=== PATIENT | female | born 1980 | race African-American/Black ===

== ENCOUNTER 2017-04-02 13:19 | Emergency (ER) | payer MEDICAID ==
[~2017-04-02] VITALS: Ht 157.5 cm; Wt 69.0 kg
[2017-04-02] MEDS ORDERED: KETOROLAC 60MG/2ML VIAL IM ONE (18:45)
[2017-04-02] MEDS ORDERED: VISCOUS LIDOCAINE 2% 15 ML UDC PO ONE (18:45)
[2017-04-02] MEDS ORDERED: LIDOCAINE HCL 1% 20ML VIAL (Pyxis) INJ MC ONE (18:45)
[2017-04-02 19:02] VITALS: BP 133/85
== END 2017-04-02 19:42 | disposition home or self-care (01) ==
LOC: ER 18:20
DX: K04.7 Periapical abscess without sinus (principal)
CPT/HCPCS: 41800; 81025; 96372; 99284; J1885; J3490; Z7610; 10060; 99283

== ENCOUNTER 2018-02-25 08:39 | Observation (INO) | payer MEDICAID ==
[~2018-02-25] VITALS: Ht 157.5 cm; Wt 70.3 kg
[2018-02-25] MEDS ORDERED: FOLI-43 PO (09:30)
[2018-02-25] MEDS ORDERED: FERR325T6 PO (09:35)
[2018-02-25] MEDS ORDERED: PNV1TABL50 PO (09:37)
[2018-02-25] MEDS ORDERED: LACTATED RINGERS 1,000 ML IV SCH (09:45)
[2018-02-25 10:02] LABS: CLARITY URINE CLEAR (CLEAR); COLOR URINE YELLOW (YELLOW); KETONES URINE TRACE (NEGATIVE); LEUKOCYTE ESTERASE URINE NEGATIVE (NEGATIVE); NITRITE URINE NEGATIVE (NEGATIVE); OCCULT BLOOD URINE NEGATIVE (NEGATIVE); PROTEIN URINE NEGATIVE (NEGATIVE)
[2018-02-25] MEDS ORDERED: TERBUTALINE SULFATE 1MG/ML VIAL SUBCUT ONE (10:45)
== END 2018-02-25 12:19 | disposition home or self-care (01) ==
LOC: L&D 08:39
PROVIDERS: ADMIT Obstetrics & Gynecology; ATTEND Obstetrics & Gynecology
DX: O26.892 Other specified pregnancy related conditions, second trimester (principal); R10.9 Unspecified abdominal pain; O62.9 Abnormality of forces of labor, unspecified; O60.02 Preterm labor without delivery, second trimester; O09.522 Supervision of elderly multigravida, second trimester; Z3A.24 24 weeks gestation of pregnancy
CPT/HCPCS: 81003; 82731; 96360; 96361; 96372; 99281; G0378; J3105; J7120; 59412

== ENCOUNTER 2020-12-05 16:32 | Emergency (ER) | payer MEDICAID ==
[~2020-12-05] VITALS: Ht 154.9 cm; Wt 68.0 kg
[~2020-12-05 16:32] MED LIST: FERR325T6 PO; FOLI-43 PO; LABE100T5 PO; PNV1TABL50 PO
[2020-12-05 17:55] LABS: BASOPHILS % 1.8 % (0.0-2.0); EOSINOPHILS % 1.4 % (0.0-5.0); HEMATOCRIT. 28.3 % (36.0-48.0); HEMOGLOBIN. 8.8 g/dL (12.0-16.0); LYMPHOCYTES % 29.9 % (20.0-50.0); MEAN CORPUSCULAR HEMOGLOBIN 19.3 pg (28.0-32.0); MEAN CORPUSCULAR VOLUME 62.3 fL (81.0-99.0); MONOCYTES % 8.1 % (2.0-8.0); NEUTROPHILS % 58.8 % (40.0-76.0); PLATELET 337 x1000/uL (130-400); RED BLOOD CELL COUNT 4.54 mill/uL (4.2-5.4); RED CELL DISTRIBUTION WIDTH 17.6 % (11.6-14.6)
[2020-12-05 18:01] LABS: CHLORIDE 107 mEq/L (98-107)
[2020-12-05 18:38] LABS: PLATELET ESTIMATE NORMAL
[2020-12-05] MEDS ORDERED: AMLO5TAB88 MT (20:40)
[2020-12-05] MEDS ORDERED: CHLO3800 TP (20:46)
[2020-12-05 21:39] VITALS: BP 134/82
== END 2020-12-05 21:40 | disposition home or self-care (01) ==
LOC: ER 16:32
DX: R07.89 Other chest pain (principal); D64.9 Anemia, unspecified; I10 Essential (primary) hypertension; Z98.890 Other specified postprocedural states
CPT/HCPCS: 36415; 71045; 80053; 83880; 84484; 85025; 85379; 93005; 99285

== ENCOUNTER 2021-11-07 18:20 | Emergency (ER) | payer MEDICAID ==
[~2021-11-07] VITALS: Ht 152.4 cm; Wt 67.0 kg
[~2021-11-07 18:20] MED LIST changes: +AMLO5TAB88 MT; +CHLO3800 TP
[2021-11-07] MEDS ORDERED: ACETAMINOPHEN 325MG TABLET PO ONE (20:15)
[2021-11-07 20:41] LABS: BASOPHILS % 1.5 % (0.0-2.0); EOSINOPHILS % 0.6 % (0.0-5.0); HEMATOCRIT. 32.9 % (36.0-48.0); HEMOGLOBIN. 9.9 g/dL (12.0-16.0); LYMPHOCYTES % 21.3 % (20.0-50.0); MEAN CORPUSCULAR HEMOGLOBIN 18.8 pg (28.0-32.0); MEAN CORPUSCULAR VOLUME 62.1 fL (81.0-99.0); MEAN PLATELET VOLUME 9.1 fl (7.4-10.4); MONOCYTES % 6.6 % (2.0-8.0); PLATELET 300 x1000/uL (130-400); RED CELL DISTRIBUTION WIDTH 17.7 % (11.6-14.6)
[2021-11-07 20:48] LABS: CHLORIDE 106 mEq/L (98-107)
[2021-11-07 20:52] LABS: ETHANOL BLOOD < 10 mg/dL
[2021-11-07 21:02] LABS: HCG SCREEN NEGATIVE
[2021-11-07] MEDS ORDERED: CLIN-116 MT (22:37)
[2021-11-07 23:05] VITALS: BP 144/74
[2021-11-07 23:57] LABS: PLATELET ESTIMATE NORMAL
== END 2021-11-07 23:07 | disposition home or self-care (01) ==
LOC: ER 18:20
DX: K05.6 Periodontal disease, unspecified (principal); R00.2 Palpitations; I10 Essential (primary) hypertension; Z98.890 Other specified postprocedural states
CPT/HCPCS: 36415; 71045; 80053; 80320; 84703; 85025; 85379; 93005; 99285; G0480

== ENCOUNTER 2022-03-21 11:14 | Emergency (ER) | payer MEDICAID ==
[~2022-03-21] VITALS: Ht 154.9 cm; Wt 69.0 kg
[~2022-03-21 11:14] MED LIST changes: +CLIN-116 MT
[2022-03-21] MEDS ORDERED: SODIUM CHLORIDE 0.9% 1,000 ML IV ONE (15:30)
[2022-03-21 17:34] LABS: BASOPHILS % 1.6 % (0.0-2.0); EOSINOPHILS % 0.9 % (0.0-5.0); LYMPHOCYTES % 37.2 % (20.0-50.0); MEAN CORPUSCULAR HEMOGLOBIN 18.7 pg (28.0-32.0); MEAN CORPUSCULAR VOLUME 63.6 fL (81.0-99.0); MEAN PLATELET VOLUME 8.9 fl (7.4-10.4); NEUTROPHILS % 51.3 % (40.0-76.0); PLATELET 293 x1000/uL (130-400); RED BLOOD CELL COUNT 5.34 mill/uL (4.2-5.4); RED CELL DISTRIBUTION WIDTH 18.6 % (11.6-14.6)
[2022-03-21 17:44] LABS: CHLORIDE 105 mEq/L (98-107)
[2022-03-21 17:56] LABS: PLATELET ESTIMATE NORMAL
[2022-03-21] MEDS ORDERED: AMLO5TAB88 MT (18:30)
[2022-03-21 19:11] VITALS: BP 170/77
== END 2022-03-21 19:12 | disposition home or self-care (01) ==
LOC: ER 11:27
DX: R55 Syncope and collapse (principal); D53.9 Nutritional anemia, unspecified; I10 Essential (primary) hypertension; Z98.890 Other specified postprocedural states; Z79.899 Other long term (current) drug therapy; Z88.0 Allergy status to penicillin
CPT/HCPCS: 36415; 71045; 80053; 81025; 82962; 83880; 84484; 85025; 93005; 96360; 99285; J7030

== ENCOUNTER 2022-05-18 13:01 | Emergency (ER) | payer MEDICAID ==
[~2022-05-18] VITALS: Ht 154.9 cm; Wt 66.0 kg
[2022-05-18 14:52] LABS: BASOPHILS % 2.6 % (0.0-2.0); EOSINOPHILS % 2.6 % (0.0-5.0); HEMATOCRIT. 30.6 % (36.0-48.0); HEMOGLOBIN. 9.3 g/dL (12.0-16.0); MEAN CORPUSCULAR HEMOGLOBIN 19.1 pg (28.0-32.0); MEAN PLATELET VOLUME 8.3 fl (7.4-10.4); MONOCYTES % 9.6 % (2.0-8.0); NEUTROPHILS % 54.2 % (40.0-76.0); PLATELET 293 x1000/uL (130-400); RED BLOOD CELL COUNT 4.86 mill/uL (4.2-5.4); RED CELL DISTRIBUTION WIDTH 18.2 % (11.6-14.6)
[2022-05-18 14:53] LABS: CHLORIDE 106 mEq/L (98-107)
[2022-05-18 15:08] LABS: HCG SCREEN NEGATIVE
[2022-05-18 15:12] LABS: PLATELET ESTIMATE NORMAL
[2022-05-18 16:30] VITALS: BP 119/83
[2022-05-18] MEDS ORDERED: AMLO5TAB88 MT (17:04)
== END 2022-05-18 17:19 | disposition home or self-care (01) ==
LOC: ER 13:01
DX: R07.89 Other chest pain (principal); I10 Essential (primary) hypertension; Z88.0 Allergy status to penicillin; Z79.899 Other long term (current) drug therapy; Z98.890 Other specified postprocedural states
CPT/HCPCS: 36415; 71045; 80053; 83880; 84484; 84703; 85025; 93005; 99285

== ENCOUNTER 2022-08-19 16:07 | Emergency (ER) | payer MEDICAID ==
[~2022-08-19] VITALS: Ht 170.2 cm; Wt 75.0 kg
[~2022-08-19 16:07] MED LIST changes: -LABE100T5 PO; +LABE100T9 PO
[2022-08-19 16:26] VITALS: BP 141/90
[2022-08-19 18:32] LABS: BASOPHILS % 3.8 % (0.0-2.0); EOSINOPHILS % 1.6 % (0.0-5.0); HEMOGLOBIN. 9.1 g/dL (12.0-16.0); LYMPHOCYTES % 30.7 % (20.0-50.0); MEAN CORPUSCULAR HEMOGLOBIN 18.9 pg (28.0-32.0); MEAN CORPUSCULAR VOLUME 64.5 fL (81.0-99.0); MEAN PLATELET VOLUME 8.7 fl (7.4-10.4); NEUTROPHILS % 56.9 % (40.0-76.0); PLATELET 271 x1000/uL (130-400); RED BLOOD CELL COUNT 4.81 mill/uL (4.2-5.4); RED CELL DISTRIBUTION WIDTH 18.8 % (11.6-14.6)
[2022-08-19 18:45] LABS: CHLORIDE 105 mEq/L (98-107)
[2022-08-19 18:46] LABS: HCG SCREEN NEGATIVE
[2022-08-19 19:31] LABS: PLATELET ESTIMATE NORMAL
== END 2022-08-19 21:39 | disposition home or self-care (01) ==
LOC: ER 16:19
DX: R20.2 Paresthesia of skin (principal); I10 Essential (primary) hypertension; Z98.890 Other specified postprocedural states; Z88.0 Allergy status to penicillin
CPT/HCPCS: 36415; 71045; 80053; 81025; 84484; 84703; 85025; 93005; 99285

== ENCOUNTER 2022-09-29 12:34 | Emergency (ER) | payer MEDICAID ==
[~2022-09-29] VITALS: Ht 154.9 cm; Wt 69.0 kg
[2022-09-29 12:40] VITALS: BP 144/99
[2022-09-29] MEDS ORDERED: SUMATRIPTAN SUCCINATE 6MG/0.5ML VIAL SUBCUT ONE (14:15)
[2022-09-29] MEDS ORDERED: IBUP-2029 PO (16:38)
== END 2022-09-29 17:02 | disposition home or self-care (01) ==
LOC: ER 12:34
DX: R51.9 Headache, unspecified (principal); Z98.890 Other specified postprocedural states; Z88.0 Allergy status to penicillin
CPT/HCPCS: 96372; 99283; J3030

== ENCOUNTER 2022-10-06 16:41 | Emergency (ER) | payer MEDICAID ==
[~2022-10-06] VITALS: Ht 154.9 cm; Wt 68.0 kg
[~2022-10-06 16:41] MED LIST changes: +IBUP-2029 PO
[2022-10-06 16:43] VITALS: BP 143/90
[2022-10-06 18:15] LABS: BASOPHILS % 1.7 % (0.0-2.0); EOSINOPHILS % 0.6 % (0.0-5.0); HEMATOCRIT. 31.9 % (36.0-48.0); HEMOGLOBIN. 9.8 g/dL (12.0-16.0); LYMPHOCYTES % 21.2 % (20.0-50.0); MEAN CORPUSCULAR HEMOGLOBIN 19.3 pg (28.0-32.0); MEAN CORPUSCULAR VOLUME 62.8 fL (81.0-99.0); MEAN PLATELET VOLUME 9.4 fl (7.4-10.4); MONOCYTES % 7.5 % (2.0-8.0); PLATELET 293 x1000/uL (130-400); RED BLOOD CELL COUNT 5.09 mill/uL (4.2-5.4); RED CELL DISTRIBUTION WIDTH 20.2 % (11.6-14.6)
[2022-10-06 18:16] LABS: CHLORIDE 106 mEq/L (98-107)
[2022-10-06 18:54] LABS: PLATELET ESTIMATE NORMAL
== END 2022-10-06 18:55 | disposition left against medical advice (07) ==
LOC: ER 16:41
DX: R07.89 Other chest pain (principal); I10 Essential (primary) hypertension; Z88.0 Allergy status to penicillin; Z98.890 Other specified postprocedural states
CPT/HCPCS: 36415; 71045; 80053; 84484; 85025; 93005; 99285

== ENCOUNTER 2024-02-07 15:38 | Emergency (ER) | payer MEDICAID, OTHER ==
[~2024-02-07] VITALS: Ht 154.9 cm; Wt 72.6 kg
[2024-02-07 15:59] VITALS: BP 150/84; TEMP 98; O2SAT 100
[2024-02-07 17:00] LABS: CARBON DIOXIDE 27 mEq/L (21-32); CHLORIDE 106 mEq/L (98-107); SODIUM 139 mEq/L (136-145)
[2024-02-07 17:01] LABS: BASOPHILS % 2.9 % (0.0-2.0); CALCIUM 9.6 mg/dL (8.7-10.4); EOSINOPHILS % 2.6 % (0.0-5.0); HEMATOCRIT. 32.4 % (36.0-48.0); HEMOGLOBIN. 9.9 g/dL (12.0-16.0); LYMPHOCYTES % 33.2 % (20.0-50.0); MEAN CORPUSCULAR HEMOGLOBIN 20.6 pg (28.0-32.0); MEAN CORPUSCULAR HGB CONC 30.7 g/dL (31.0-37.0); MEAN CORPUSCULAR VOLUME 67.1 fL (81.0-99.0); MEAN PLATELET VOLUME 9.2 fl (7.4-10.4); NEUTROPHILS % 52.3 % (40.0-76.0); PLATELET 286 x1000/uL (130-400); RED BLOOD CELL COUNT 4.83 mill/uL (4.2-5.4); RED CELL DISTRIBUTION WIDTH 18.8 % (11.6-14.6); WHITE BLOOD COUNT 5.1 x1000/uL (4.5-11.0)
[2024-02-07 17:05] LABS: CREATININE 0.7 mg/dL (0.6-1.0); DIFFERENTIAL COMMENT 1; GLUCOSE 88 mg/dL (70-105)
[2024-02-07 17:06] LABS: UREA NITROGEN BLOOD 11 mg/dL (9-23)
[2024-02-07 17:07] LABS: ALANINE AMINOTRANSFERASE 9 IU/L (10-49); ALBUMIN 4.7 g/dL (3.2-4.8); ASPARTATE AMINOTRANSFERASE 14 IU/L (<34)
[2024-02-07 17:08] LABS: BILIRUBIN TOTAL 0.3 mg/dL (0.1-1.0); PROTEIN TOTAL 7.6 g/dL (6.0-8.3)
[2024-02-07 17:10] LABS: BILIRUBIN DIRECT < 0.1 mg/dL (<=3.0); TROPONIN I HIGH SENSITIVITY < 4 ng/L (3.0-34)
[2024-02-07 17:15] LABS: HCG SCREEN NEGATIVE
[2024-02-07 18:12] VITALS: PULSE 83; RESP 16
== END 2024-02-07 18:13 | disposition home or self-care (01) ==
LOC: ER 15:38
DX: R07.89 Other chest pain (principal); R10.13 Epigastric pain; I10 Essential (primary) hypertension; Z88.0 Allergy status to penicillin; Z79.899 Other long term (current) drug therapy; Z98.890 Other specified postprocedural states
CPT/HCPCS: 36415; 71045; 80048; 80076; 84484; 84703; 85025; 93005; 99285

== ENCOUNTER 2024-07-12 18:12 | Emergency (ER) | payer MEDICAID ==
[~2024-07-12] VITALS: Ht 154.9 cm; Wt 72.6 kg
[2024-07-12 18:36] VITALS: O2SAT 100
[2024-07-12] MEDS ORDERED: AMLODIPINE 10MG TABLET PO ONE (20:30)
[2024-07-12 20:42] LABS: BASOPHILS % 1.2 % (0.0-2.0); DIFFERENTIAL COMMENT 0; EOSINOPHILS % 2.4 % (0.0-5.0); HEMATOCRIT. 37.1 % (36.0-48.0); HEMOGLOBIN. 11.5 g/dL (12.0-16.0); MEAN CORPUSCULAR HEMOGLOBIN 22.1 pg (28.0-32.0); MEAN CORPUSCULAR HGB CONC 30.9 g/dL (31.0-37.0); MEAN CORPUSCULAR VOLUME 71.7 fL (81.0-99.0); MEAN PLATELET VOLUME 8.7 fl (7.4-10.4); MONOCYTES % 6.3 % (2.0-8.0); NEUTROPHILS % 65.1 % (40.0-76.0); PLATELET 248 x1000/uL (130-400); RED BLOOD CELL COUNT 5.18 mill/uL (4.2-5.4); RED CELL DISTRIBUTION WIDTH 20.5 % (11.6-14.6)
[2024-07-12 20:49] LABS: CHLORIDE 107 mEq/L (98-107); POTASSIUM 3.8 mEq/L (3.5-5.1); SODIUM 140 mEq/L (136-145)
[2024-07-12 20:50] LABS: CALCIUM 9.7 mg/dL (8.7-10.4); CARBON DIOXIDE 27 mEq/L (21-32)
[2024-07-12 20:55] LABS: CREATININE 0.8 mg/dL (0.6-1.0); GLUCOSE 97 mg/dL (70-105); UREA NITROGEN BLOOD 14 mg/dL (9-23)
[2024-07-12 21:00] LABS: CLARITY URINE CLEAR (CLEAR); COLOR URINE YELLOW (YELLOW); GLUCOSE URINE NEGATIVE (NEGATIVE); KETONES URINE NEGATIVE (NEGATIVE); LEUKOCYTE ESTERASE URINE NEGATIVE (NEGATIVE); NITRITE URINE NEGATIVE (NEGATIVE); OCCULT BLOOD URINE 3+ (NEGATIVE); PROTEIN URINE NEGATIVE (NEGATIVE); SPECIFIC GRAVITY URINE 1.014 (1.005-1.030); UROBILINOGEN URINE 0.2 E.U./dL (0.2-1.0)
[2024-07-12] MEDS: ACETAMINOPHEN 500MG TABLET PO ONE (21:15)
[2024-07-12 21:23] LABS: BACTERIA URINE NONE SEEN; SQUAMOUS EPITHELIAL CELL URINE NONE SEEN /lpf (RARE/1+); WBC URINE NONE SEEN /hpf (0-2)
[2024-07-12] MEDS: AMLODIPINE 5MG TABLET PO NR (21:54)
[2024-07-12] MEDS: IBUPROFEN 600MG TABLET PO ONE (21:54)
[2024-07-12] MEDS: LOSARTAN 25 MG TABLET PO ONE (21:54)
[2024-07-12 21:56] VITALS: BP 162/84; PULSE 76; RESP 20; TEMP 36.83628; O2SAT 100
[2024-07-12 21:58] LABS: HCG SCREEN NEGATIVE
== END 2024-07-12 22:04 | disposition home or self-care (01) ==
LOC: ER 18:12
DX: I10 Essential (primary) hypertension (principal); D64.9 Anemia, unspecified; Z88.0 Allergy status to penicillin; Z98.890 Other specified postprocedural states; Z79.899 Other long term (current) drug therapy
CPT/HCPCS: 36415; 80048; 81003; 84703; 85025; 99285